=== PATIENT | female | born 1960 | race Two or more races ===

== ENCOUNTER 2017-11-19 17:15 | Emergency (ER) | payer OTHER ==
[2017-11-19 17:26] VITALS: BP 115/82; RESP 16; TEMP 98.4
--- NOTE | 2017-11-19 18:05 | EDPHY ---
H & P Time Seen by Provider: 11/19/17 17:21 HPI/ROS: CHIEF COMPLAINT: Ft pain HISTORY OF PRESENT ILLNESS: Patient states she has had bilateral foot pain for at least 3 months. Perhaps as long ago as last fall it began. She states she has scoliosis and has had foot and leg pain off and on for some time. Since August however she has noticed pain bilaterally to the great toe and ball of foot. Hurts most of the time. Sometimes worse with activity. Has tried different shoes and socks combinations with minimal relief. Has tried over-the- counter analgesics with minimal relief. Today see more painful than usual and was concerned about infection. Patient denies any skin lesions. States that her feet sweat a lot. No numbness or tingling. No incontinence. No fevers or chills. No red streaks. REVIEW OF SYSTEMS: Constitutional: No fever, no chills. Eyes: No discharge. ENT: No sore throat. Cardiovascular: No chest pain, no palpitations. Respiratory: No cough, no shortness of breath. Gastrointestinal: No abdominal pain, no vomiting. Genitourinary: No dysuria. Musculoskeletal: No back pain. Skin: No rashes. Neurological: No headache. General Appearance: Alert, no distress. Eyes: Pupils equal and round no pallor or injection. ENT, Mouth: Mucous membranes moist. Respiratory: There are no retractions, lungs are clear to auscultation. Cardiovascular: Regular rate and rhythm. Gastrointestinal: Abdomen is soft and nontender, no masses, bowel sounds normal. Neurological: Awake and alert, normal reflexes. Normal sensation and strength to lower extremities. No saddle paresthesia. Skin: Warm and dry, no rashes. Musculoskeletal: Neck is supple nontender. Extremities are symmetrical, full range of motion, no edema. Psychiatric: Patient is oriented X 3, there is no agitation. Medical/surgical history: Scoliosis. ADD. Social history: Nonsmoker, no alcohol or drugs. Born in [place], moved to [facility] in 1985. 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 Smoking Status: Never smoked Constitutional: Initial Vital Signs Temperature (C) 36.9 C 11/19/17 17:20 Heart Rate 86 11/19/17 17:20 Respiratory Rate 16 11/19/17 17:20 Blood Pressure 115/82 H 11/19/17 17:20 O2 Sat (%) 97 11/19/17 17:20 O2 Delivery Mode Room Air Allergies/Adverse Reactions: No Known Allergies Allergy (Unverified 11/19/17 17:26) Home Medications: Medication Instructions Recorded Collagen Plus Vit C Capsule 11/19/17 Excedrin Tablet (*) 11/19/17 Gabapentin [Neurontin 300 MG (*)] 300 mg PO HS #30 cap 11/19/17 Magnesium 11/19/17 VYVANSE 11/19/17 Medical Decision Making Differential Diagnosis: Differential diagnosis includes but is not limited to peripheral neuropathy, peripheral vascular disease, gout, cellulitis, arthritis. After evaluation unclear cause of her symptoms but no evidence of infection. Low suspicion for gout or peripheral vascular disease. Could represent neuropathy and will try treating with low-dose gabapentin until she follows up with her primary care physician on the of this month. Discussed return precautions. Stable for discharge. - Data Points Medications Given: Discontinued Medications Gabapentin (Neurontin) 300 mg PO EDNOW ONE Stop: 11/19/17 18:15 Last Admin: 11/19/17 18:20 Dose: 300 mg Departure - Departure Disposition: Home, Routine, Self-Care Clinical Impression: Foot pain Qualifiers: Laterality: bilateral Qualified Code(s): M79.671 - Pain in right foot Condition: Good Instructions: Peripheral Neuropathy (ED) Referrals: FARHANA ENCINAS [Primary Care Provider] - As per Instructions Prescriptions: Gabapentin [Neurontin 300 MG (*)] 300 mg PO HS #30 cap
[2017-11-19] MEDS ORDERED: GABAPENTIN 300 MG CAP ONE (18:11)
[2017-11-19] MEDS ORDERED: GABAPENTIN 300 MG CAP PO ONE (18:14)
[2017-11-19 18:27] VITALS: PULSE 80; O2SAT 98
== END 2017-11-19 18:20 | disposition home or self-care (01) ==
LOC: CED 17:15
DX: M79.671 Pain in right foot (principal); M79.672 Pain in left foot

== ENCOUNTER → 2018-07-03 | Outpatient (CLI) | payer OTHER | LOC: FIMAGING 15:02 | PROVIDERS: ATTEND Family Medicine | DX: Z12.31 Encounter for screening mammogram for malignant neoplasm of breast (principal) ==